=== PATIENT | male | born 1975 | race Caucasian/White ===

== ENCOUNTER 2017-12-20 18:25 | Emergency (ER) | payer OTHER ==
[~2017-12-20] VITALS: Ht 162.6 cm; Wt 74.4 kg
[2017-12-20 18:27] VITALS: Ht 162.6 cm; Wt 74.4 kg
[2017-12-20 19:15] VITALS: BP 130/71
== END 2017-12-20 19:15 | disposition home or self-care (01) ==
LOC: ED 18:25
DX: S20.219A Contusion of unspecified front wall of thorax, initial encounter (principal); W11.XXXA Fall on and from ladder, initial encounter; Y93.89 Activity, other specified; Y92.89 Other specified places as the place of occurrence of the external cause; Y99.8 Other external cause status
CPT/HCPCS: J1885

== ENCOUNTER 2019-07-17 21:30 | Emergency (ER) | payer OTHER ==
[~2019-07-17] VITALS: Ht 172.7 cm; Wt 76.0 kg
[2019-07-17 21:43] VITALS: Ht 172.7 cm; Wt 76.0 kg
[2019-07-17 23:04] VITALS: BP 148/89
== END 2019-07-17 23:04 | disposition home or self-care (01) ==
LOC: ED 21:30
DX: M65.842 Other synovitis and tenosynovitis, left hand (principal)
CPT/HCPCS: A4570